=== PATIENT | female | born 1995 | race Caucasian/White ===

== ENCOUNTER 2017-10-27 07:32 | Day surgery (SDC) | payer OTHER ==
[2017-10-27] MEDS ORDERED: Propofol 10 mg/ml Inj (20 ML) ONE (09:15)
[2017-10-27] MEDS ORDERED: Lidocaine Hydrochloride 5 ML INJ ONE (09:15)
--- NOTE | 2017-10-27 09:26 | CP.SDSHP ---
Same Day Surgery H & P - History Proposed Procedure: EGD Pre-Op Diagnosis: SEE NOTES - Previous Medical/Surgical History Pulmonary: Asthma Neuro: Headaches, Backaches - Allergies Allergies: Allergies milk Allergy (Verified 10/27/17 08:31) DIARRHEA tree and shrub pollen Allergy (Verified 10/27/17 08:31) CONGESTION DUST Allergy (Uncoded 10/27/17 08:31) CONGESTION SEASONAL Allergy (Uncoded 10/27/17 08:31) CONGESTION - Physical Exam General Appearance: N Vital Signs: Vital Signs 10/27/17 08:00 Temperature 98.4 F Pulse Rate 80 Respiratory 20 Rate Blood Pressure 121/79 O2 Sat by Pulse 97 Oximetry Mental Status: Alert & Oriented x3 Neuro: WNL Heart: WNL Lungs: Other GI: Other - {Optional Preform as Required} Breast: WNL Abdomen: Other Rectal: Other Integument: WNL : WNL Ortho: Other ENT: WNL - Impression Pt. Evaluated Today:Candidate for Anesthesia & Procedure: Yes - Date & Time Time: 09:25 Short Stay Discharge - Short Stay Discharge Admitting Diagnosis/Reason for Visit: FUNCTIONAL DYSPEPSIA Disposition: HOME/ ROUTINE
[2017-10-27] MEDS ORDERED: Lactated Ringer's 1,000 ML IV ONE (09:30)
[2017-10-27] MEDS ORDERED: Lactated Ringer's 500 ML IV SCH (09:45)
[2017-10-27] MEDS ORDERED: Belladonna-Phenobarbital PO ONE (09:50)
[2017-10-27 12:58] VITALS: TEMP 98.2; O2SAT 100
[2017-10-27 12:59] VITALS: RESP 16
[2017-10-27 13:02] VITALS: BP 111/71; PULSE 85
== END 2017-10-27 11:10 | disposition home or self-care (01) ==
LOC: C.ENDO 07:32
PROVIDERS: ATTEND Specialist
DX: K21.0 Gastro-esophageal reflux disease with esophagitis (principal); K29.50 Unspecified chronic gastritis without bleeding
CPT/HCPCS: 43239; 84703; 88305; 88342; J2704; J7120